=== PATIENT | female | born 1995 | race African-American/Black ===

== ENCOUNTER 2020-08-20 08:31 | Emergency (ER) | payer BC ==
[~2020-08-20] VITALS: Ht 160 cm; Wt 54.4 kg
[2020-08-20 09:32] LABS: ABSOLUTE NEUTROPHILS 10.1 thou/uL (1.4-8.2); BASOPHILS 0.3 % (0.0-2.0); EOSINOPHILS 0.2 % (0.0-3.0); HEMATOCRIT 38.2 % (37.0-47.0); HEMOGLOBIN 12.3 gm/dL (12.0-15.0); LYMPHOCYTES 10.2 % (24.0-44.0); MCHC 32.3 g/dL (28.0-37.0); MCV 83.7 fL (80.0-100.0); MONOCYTES 2.6 % (1.0-8.0); PLATELET COUNT 283 thou/uL (150-400); POLYS 86.7 % (36.0-66.0); RBC 4.57 mil/uL (4.20-5.00); RDW 14.2 % (10.5-14.5); WBC 11.6 thou/uL (4.0-11.0)
[2020-08-20 09:41] LABS: ANION GAP 12 mmol/L (7-16); BUN 8 mg/dL (7-18); CALCIUM 9.2 mg/dL (8.5-10.1); CHLORIDE 106 mmol/L (98-107); CO2 22 mmol/L (21-32); GLUCOSE 134 mg/dL (74-106); SODIUM 140 mmol/L (136-145)
[2020-08-20 09:46] LABS: URINE BILIRUBIN NEGATIVE (Negative); URINE BLOOD 3+ (Negative); URINE CLARITY CLOUDY; URINE COLOR RED; URINE GLUCOSE-RANDOM* NEGATIVE (Negative); URINE KETONES 2+ (Negative); URINE PROTEIN (DIPSTICK) 2+ (Negative); URINE SPECIFIC GRAVITY >= 1.030 (1.005-1.035)
[2020-08-20 09:47] LABS: URINE LEUKOCYTES-REFLEX 1+ (Negative); URINE NITRITE-REFLEX POSITIVE (Negative)
[2020-08-20 09:53] LABS: DIRECT BILIRUBIN 0.1 mg/dL (<0.1-0.2); LIPASE 73 U/L (73-393); SGOT 12 U/L (15-37); SGPT 17 U/L (14-59); TOTAL BILIRUBIN 0.4 mg/dL (0.2-1.0); TOTAL PROTEIN 7.7 g/dL (6.4-8.2); TROPONIN-I <0.06 ng/mL (<0.06)
[2020-08-20 10:12] LABS: SQUAMOUS >10 Many /LPF (0-3)
[2020-08-20 10:13] LABS: MUCUS >6 Heavy strn/LPF (None Seen)
[2020-08-20 10:14] LABS: CASTS None Seen /LPF (None Seen); URINE RBC >20 Many /HPF (NONE SEEN); URINE WBC-REFLEX >25 Many /HPF (0-5)
[2020-08-20 10:15] LABS: CRYSTALS None Seen /LPF (None Seen)
[2020-08-20] MEDS ORDERED: ZOFRAN ODT4 MG PO (12:46)
[2020-08-20] MEDS ORDERED: CEPHALEXIN500 MG PO (12:46)
[2020-08-20] MEDS ORDERED: IBU600 MG PO (12:47)
[2020-08-20 13:10] VITALS: BP 115/53
--- NOTE | 2020-08-20 17:19 | EKG ---
[place] [address] [facility] [place] [address] ELECTROCARDIOGRAM REPORT Name: MARCI PETERSON Room [facility]: [id number] Admission: 08/20/20 Attend Phys: Discharge: 08/20/20 Date of : [birth year] Report #: [id number] [facility] ED Test Date: 2020-08-20 Test Time: 09:31:20 Pat Name: MARCI PETERSON Department: Room: Gender: F [employer]: [employer] : 1995 Requested By: Ena Powell Order Number: [id number] MD: Deng Griffin Measurements Intervals [place] Rate: 73 P: 57 OH: 313 QRS: 74 QRSD: 89 T: 68 QT: 438 QTc: 483 Interpretive Statements Second degree AV block, Mobitz II Borderline prolonged QT interval No previous ECG available for comparison Electronically Signed On 08-20-2020 17:19:33 CDT by Deng Griffin [email or web address] <ELECTRONICALLY SIGNED> By: Deng Griffin MD, [facility] 08/20/20 1719 0931 0 Deng Griffin MD, FACC /EPI
== END 2020-08-20 13:11 | disposition home or self-care (01) ==
LOC: ER 08:31
PROVIDERS: Emergency Medicine
DX: N39.0 Urinary tract infection, site not specified (principal); E87.2 Acidosis